=== PATIENT | female | born 1955 | race Caucasian/White ===

== ENCOUNTER 2018-09-17 05:47 | Observation (INO) | payer OTHER ==
[~2018-09-17] VITALS: Ht 154.9 cm; Wt 49.9 kg
[~2018-09-17 05:47] MED LIST: ESTRADIOL1 EAC2 TRANSDERM
[2018-09-17 13:50] VITALS: BP 111/77
--- NOTE | 2018-09-17 16:59 | EKG ---
[address] [address] ELECTROCARDIOGRAM REPORT Name: IVAN MEJÍA Room #: [address] [place] [address]#: [id number] ������������������ Admission: 09/17/18 ������������������ Attend Phys: Jose Maria Sanches MD Discharge: ������������������ Date of : 59 Report #: [id number] ����������������������������������������������������������������� [id number] THIS REPORT FOR: //name// [facility] Test Date: 2018-09-17 Test Time: 13:07:39 Pat Name: IVAN MEJÍA Department: Room: 150 3 Gender: F Power Generation Technician: renetta : 1955 Requested By: Jose Maria Sanches Order Number: [id number] MD: Wilmer Castillo Measurements Intervals [place] Rate: 82 P: 55 MO: 130 QRS: 61 QRSD: 99 T: 30 QT: 378 QTc: 442 Interpretive Statements Sinus rhythm Normal tracing No previous ECG available for comparison Electronically Signed On 09-17-2018 16:58:50 CDT by Wilmer Castillo [email or web address] ��������������������������������������������� <ELECTRONICALLY SIGNED> ���������������������������������������� By: Wilmer Castillo MD, [facility] ��������������������������������������������� 09/17/18 1658 1307 1307 Wilmer Castillo MD, FACC /EPI
--- NOTE | 2018-09-17 20:12 | NUR ---
PATIENT ARRIVED AT 1840 FROM POST OP AT BEDSIDE. PT DROWSY HAS SCOPALAMINE PATCH BEHIND LEFT EAR. OFFICE ASST TO VERIFY ORDERS. LUNGS CTA NO RESP DISTRESS. DRSG INTACT TO RIGHT HIP. HAS POLAR PACK. VS: 97.5 18 76 115/86. PT STATES NO PAIN BUT VERY TIRED, PT WAS TO GO HOME AFTER SURGERY BUT DOCTOR SAID IN AM. RX'S IN CHART WELL DISCHARGE PAPERWORK.
[2018-09-17 20:15] VITALS: BP 98/76
[2018-09-17 20:30] VITALS: BP 111/73
[2018-09-17 21:00] VITALS: BP 127/79
[2018-09-17 21:30] VITALS: BP 114/65
[2018-09-17 22:33] VITALS: BP 116/75
[2018-09-18 04:30] VITALS: BP 115/71
--- NOTE | 2018-09-18 04:51 | NUR ---
ASSUMED CARE OF PT AT START OF SHIFT PT RESTING WELL , C/O NAUSEA IV ZOFRAN GIVEN RIGHT HIP WITH ICE PACK , PAIN MEDICATION GIVEN ORDERED. PT UP TO BSC WITH MIN ASSISTANCE. GOOD PULSES NOTED, DRESSING REMANIN CLEAN DRY AND INTACT/
[2018-09-18 07:20] VITALS: BP 100/62
[2018-09-18 08:00] VITALS: BP 100/62
[2018-09-18 12:11] VITALS: BP 100/62
--- NOTE | 2018-09-18 12:11 | NUR ---
PT ADMITTED RELATED TO RT HIP ARTHROPLASTY/LABRAL REPAIR. CM REVIEWED CHART AND SPOKE WITH CARE TEAM. CM MET WITH PT AT BEDSIDE THIS DAY. PT IS A&O X4. CM ROLE INTRODUCED. PT INDICATED THAT SHE LIVES IN A HOUSE WITH HER SPOUSE WITH 2 STEPS TO ENTER AND NO STEPS INSIDE. PT INDICATED SHE HAS A STAIR GLIDE. PT HAD A FWW FOR USE UPON DC. PT INDICATED SHE ANTICPATES DOING OP PT AT [facility] ONCE INDICATED. PT IS TO DISHCARGE HOME THIS AFTERNOON. NO OTHER CM INTERVENTION INDICATED AT THIS TIME. CASE CLOSED.
[2018-09-18 12:14] VITALS: BP 100/62
--- NOTE | 2018-09-18 12:39 | O ---
[facility] [place] [address] OPERATIVE REPORT Name: IVAN MEJÍA Room #: 457-P [facility].#: [id number] Admission: 09/17/18 ������������������ Attend Phys: Jose Maria Sanches MD Discharge: ������������������ Date of : 59 Report #: [id number] THIS REPORT FOR: //name// CC: Josselyn Callejas Jose Maria Sanches DATE OF SERVICE: 09/17/2018 SERVICE: Orthopedics. FACILITY: [place]. SURGEON: Jose Maria Sanches MD. MONEY COUNTER: Venus Ballesteros NP. PREOPERATIVE DIAGNOSES: 1. Right hip pain. 2. Right hip chondromalacia. 3. Right hip labral tear. 4. Right hip gluteus medius/gluteus minimus abductor tendon tear. POSTOPERATIVE DIAGNOSES: 1. Right hip pain. 2. Right hip chondromalacia. 3. Right hip labral tear. 4. Right hip gluteus medius/gluteus minimus abductor tendon tear. 5. Early right hip osteoarthritis. PROCEDURE: 1. Right hip arthroscopy with debridement and chondroplasty. 2. Right hip open abductor tendon repair with trochanteric bursectomy. COMPLICATIONS: None. DRAINS: None. SPECIMENS: None. ANESTHESIA TYPE: General with regional. FINDINGS: 1. Focal area of detached articular cartilage of the acetabulum with grade 3 chondromalacia covering approximately 20% of the surface area of the acetabulum and approximately 10% of the femoral head, partial thickness on the weightbearing portion of the femoral head. Limited debridement performed with [facility] [address] [place] [address] OPERATIVE REPORT Name: IVAN MEJÍA [facility] [id number] Admission: 09/17/18 ������������������ Attend Phys: Jose Maria Sanches MD Discharge: ������������������ Date of : 59 Report #: [id number] no further disruption of the intra-articular structures. 2. Abductor repair with [place] ReelX anchor x 2. HISTORY: The patient is a 63-year-old female with a history of chronic right hip pain. She had intraarticular symptoms as well as abductor tendon pathology and greater trochanteric pain syndrome. Her imaging was suggestive of hip impingement as her underlying etiology for some early degenerative changes and I suspected that there was chondromalacia here. The MRI showed some chondral pathology, although the x-ray showed a Tonnis grade of 1 with a maintained joint space. Her MRI also showed abductor tendon tear with significant trochanteric bursitis. We had a discussion about the optimal treatment options. I recommended diagnostic arthroscopy with treatment of the intra-articular pathology as indicated with a more aggressive approach if the articular cartilage appeared healthy followed by an abductor tendon repair. She gave full informed consent and wished to proceed. Risks, benefits, alternatives and indication for surgery were discussed with her in detail. Risks include but not limited to pain, bleeding, infection, injury to nerves or blood vessels, persistent pain despite surgical intervention, failure of any repairs, reconstructions, progression of preexisting chondral injury, stiffness, need for further surgery as well as arthroplasty as well as complications related to anesthesia such as stroke, heart attack, pulmonary complications, thromboembolic disease and . Despite the risks, she wished to proceed. PROCEDURE IN DETAIL: After right lower extremity was correctly identified in the preoperative holding area as the operative extremity, the patient underwent placement of a single shot regional nerve block. She was then taken to the operating room where general anesthesia was induced without complication. She was padded appropriately. Prophylactic antibiotics with clindamycin were administered at appropriate time. C-arm was used to assess the right hip, femoral head and neck junction. She had mild Cam impingement. Right hip was prepped and draped in standard sterile fashion. Time-out procedure was performed. Traction was applied to right lower extremity, then establishment of the anterolateral portal was performed in a typical fashion under fluoroscopic guidance and then the anteromedial working portal was established under direct arthroscopic visualization. Note, transverse capsulotomy was performed as I proceed with a diagnostic arthroscopy first. There was significant amount of chondromalacia as stated above. There were areas where the cartilage was normal, but in general, the cartilage was very soft and she was having weightbearing femoral head as well as anterior dome chondral pathology on the acetabular side as well as the femur. I placed a shaver in and perform a chondroplasty working laterally and posteriorly and into the fovea and then working anteriorly along the rim where the most significant articular cartilage injury was approximately the 12 o'clock to 10 o'clock position on this right hip. After chondroplasty was completed, traction was let down. [address] [address] OPERATIVE REPORT Name: IVAN MEJÍA Room #: 457-P [facility] Blayne Carver#: [id number] Admission: 09/17/18 ������������������ Attend Phys: Jose Maria Sanches MD Discharge: ������������������ Date of : 59 Report #: [id number] Scope was reoriented into the peritrochanteric space and then trochanteric bursectomy was performed with the shaver in a standard fashion. At this point, in order to obtain a strongest repair possible, an open incision was made. Dissection was taken down to the IT band, which was then incised in line with the fibers and retracted allowing access to the gluteus medius and minimus muscle and tendon. The superficial layer was incised and then this allowed exposure of the deep layers where a significant partial tear was present. The rongeur and rasp were used to abrade the trochanteric bone to generate a bleeding surface and then 2 [place] labral tape sutures were used to perform a running locking stitch with posterior and anterior limbs on the first one and 2 primarily posterior limbs on the second and then these were advanced into the bone with ReelX suture anchors under fluoroscopic guidance. After this was completed, the repair was palpated and found to be secure. The wound was copiously irrigated. The deep layer was closed with 0 Vicryl suture in a [id number] fashion and then the fat layer was closed with 0 Vicryl suture. The skin was closed with 2-0 Vicryl followed by running subcuticular 3-0 Monocryl and Dermabond. Sterile dressing was applied. The patient was awakened from anesthesia and taken to recovery room in stable condition. There were no complications. All counts were correct. ��������������������������������������������� <ELECTRONICALLY SIGNED> ���������������������������������������� By: Jose Maria Sanches MD ��������������������������������������������� 09/18/18 1239 1643 1722 Jose Maria Sanches MD /nt
--- NOTE | 2018-09-18 13:13 | NUR ---
AAOX4. VERY PLEASANT AND COOPERATIVE. RIGHT HIP DRESSING DRY AND INTACT. UP IN ROOM WITH WALKER AND BRACE FOLLOWING WEIGHT BEARING PRECAUTIONS OF 30%. GOOD APPETITE AND GOOD PAIN CONTROL WITH MEDICATION. HERE TO PROVIDE TRANSPORTATION HOME. VOICES UNDERSTANDING OF DISCHARGE INSTRUCTIONS. PLANS TO ATTEND OUTPATIENT THERAPY.
== END 2018-09-18 12:58 | disposition home or self-care (01) ==
LOC: OR 05:47 → TBA 05:47 → OR 11:00 → 4W 18:54 → OR 18:55 → 4W 18:55 → ENTRNSPT 09-18 12:29 → EDTRNSPTSTS 09-18 12:36 → 4W 09-18 12:58
PROVIDERS: ADMIT Orthopaedic Surgery Sports Medicine
PROC: 0SB94ZZ Excision of Right Hip Joint, Percutaneous Endoscopic Approach (ICD-10-PCS; principal; 2018-09-17)
DX: S76.011A Strain of muscle, fascia and tendon of right hip, initial encounter (principal); M94.251 Chondromalacia, right hip; M16.11 Unilateral primary osteoarthritis, right hip; Z88.0 Allergy status to penicillin
CPT/HCPCS: 10047; 50010; 50101; 50386; 51320; 51538; 52001; 52282; 52304; 52313; 54118; 55430; 56524; 56526; 56527; 56528; 57092; 57103; 62110; 62900; 64043; 65060; 70005